=== PATIENT | female | born 1970 | race Caucasian/White ===

== ENCOUNTER 2025-02-09 15:00 | Outpatient (CLI) | payer OTHER, SELFPAY ==
[2025-02-09 19:39] LABS: Hematocrit 40.0 % (37.0-47.0); Hemoglobin 13.5 g/dL (12.2-16.2); Immature Granulocytes % 0.2 %; Mean Corpuscular HGB Conc 33.8 g/dL (31.8-35.4); Mean Corpuscular Hemoglobin 29.1 pg (27.0-31.2); Mean Corpuscular Volume 86.2 fl (81-99); Nucleated Red Blood Cells % 0 %; Platelet Count 309 K/mm3 (142-424); Red Blood Count 4.64 M/mm3 (4.20-5.40); Red Cell Distribution Width-SD 40.0 fL; White Blood Count 8.4 K/mm3 (4.8-10.8)
[2025-02-09 20:00] LABS: Hemoglobin A1C 6.2 % (4.0-6.0)
[2025-02-09 20:01] LABS: Albumin Level 4.0 g/dl (3.5-5.0); Chloride 98 mmol/L (98-107)
[2025-02-09 20:02] LABS: Potassium 3.5 mmoL/L (3.5-5.1); Sodium 138 mmol/L (136-145)
[2025-02-09 20:04] LABS: Alanine Aminotransferase 33 U/L (12-78); Alkaline Phosphatase 144 U/L (38-126); Anion Gap 13.5 mEq/L (5-15); Aspartate Amino Transferase 40 U/L (14-36); Bilirubin,Total 0.7 mg/dl (0.2-1.3); Blood Urea Nitrogen 12 mg/dl (7-17); Carbon Dioxide 30 mmol/L (22.0-30.0); Creatinine,Serum 0.70 mg/dl (0.52-1.04); Estimated Glomerular Filt Rate 88 ml/min (>60); GFR (African American) 106 ML/MIN (>60)
[2025-02-09 20:05] LABS: Albumin/Globulin Ratio 1.3 (1.1-1.8); Calcium 9.5 mg/dl (8.4-10.2); Cholesterol 307 mg/dl (140-200); Globulin 3.0 g/dL (1.3-3.2); Glucose 113 mg/dl (74-100); Total Protein,Serum 7.0 g/dl (6.3-8.2); Triglycerides 253 mg/dl (30-150)
[2025-02-09 20:35] LABS: Thyroid Stimulating Hormone 1.58 uIU/mL (0.465-4.68)
[2025-02-09 20:55] LABS: Hepatitis C Ab Qual. W/ RFX NEGATIVE (Negative)
[2025-02-09 22:10] LABS: Vitamin B12 447 pg/mL (239-931)
[2025-02-09 22:11] LABS: HDL Cholesterol 46 mg/dl (40-60)
--- OUTSIDE RECORDS SUMMARY | 2025-02-10 10:31 | XMS_ITS | Encounter Summary ---
Author Organization [place] [address] Care Team Providers Care Dot Net Developer Name Role Phone Ifrah Heard DO Primary Care Provider [phone] Reason for Visit * Reason Comments Medication Refill Encounter Details Date Type Department Care Team ([facility] Contact Info) Description 12/28/2024 Refill [facility] [address] [place] [address] Ifrah Heard DO [address] [place] [address] Medication Refill Social History Tobacco Use Types Packs/Day Years Used Date Smoking Tobacco: Never Smokeless Tobacco: Never Alcohol Use Standard Drinks/Week Comments Never 0 (1 standard drink = 0.6 oz pur e alcohol) PHQ-2 Answer Date Recorded PHQ-2 Total Score 0 04/01/2023 Sexually Active Control Partners Comments Not Currently Comments No Sex and Gender Information Value Date Recorded Sex Assigned at Not on file Legal Sex Female 12:44 AM EDT Gender Identity Not on file Sexual Orientation Not on file documented as of this encounter Functional Status * Is the person deaf or does he/she have serious difficulty hearing? Answer Date of Assessment Author No 04/01/2023 12:59 PM EDT Nikki Enrique MA * Is the person blind or does he/she have serious difficulty seeing even when wearing glasses? Answer Date of Assessment Author No 04/01/2023 12:59 PM EDT Nikki Enrique MA * Does this person have serious difficulty walking or climbing stairs? Answer Date of Assessment Author No 04/01/2023 12:59 PM EDT Nikki Enrique MA * Does this person have difficulty dressing or bathing? Answer Date of Assessment Author No 04/01/2023 12:59 PM EDT Nikki Enrique MA * Because of a physical, mental or emotional condition, does this person have difficulty doing errands alone such as visiting a doctor's office or shopping? Answer Date of Assessment Author No 04/01/2023 12:59 PM EDT Nikki Enrique MA documented as of this encounter Mental Status * Because of a physical, mental or emotional condition, does this person have serious difficulty concentrating, remembering or making decisions? Answer Entry Date Author No 04/01/2023 12:59 PM EDT Nikki Enrique MA documented in this encounter Ordered Prescriptions Prescription Sig Dispense Quantity Refills Last Filled Start Date End Date hydrOXYzine (VISTARIL) 50 mg Oral CapsuleIndications :Psychophysiologic insomnia Take 1 Capsule by mouth nightly. 30 Capsule 12/29/2024 documented in this encounter Plan of Treatment Not on file documented as of this encounter Goals Goal Patient Goal Type Associated Problems Recent Progress Patient-Stated? Author Blood Pressure < 140/90 Blood Pressure 130/78(2022 12:53 PM EDT) No Raven Patricia MD Maintain a healthy diet, exercise regularly and maintain an ideal body weight General No Beckie Meeks, RMA BMI (Calculated) < 30 General 51.3(04/01/20 12:53 PM EDT) No Raven Patricia MD HEMOGLOBIN A1C < 7.0 Result Component 8.1( 2 2:49 PM EST) No Raven Patricia MD documented as of this encounter Visit Diagnoses Diagnosis Psychophysiologic insomnia Persistent disorder of initiating or maintaining sleep documented in this encounter Discontinued Medications Medication Sig Discontinue Reason Start Date End Da te hydrOXYzine (VISTARIL) 50 mg Oral CapsuleIndications:Psych ophysiologic insomnia Take 1 Capsule by mouth nightly. 11/26/2024 12/29/2024 documented as of this encounter Care Teams Dot Net Developer Relationship Specialty Start Date End Date Ifrah Heard DO [employer] MATTHEW CHRISTIAN [id number] PCP - General Family Medicine 08/05/23 01/06/25 documented as of this encounter
--- OUTSIDE RECORDS SUMMARY | 2025-02-10 10:31 | XMS_ITS | Encounter Summary ---
Author Organization [place] Address [place] [address] [place] [address] Care Team Providers Care Propagator Laborer Name Role Phone Unavailable Primary Care Provider Unavailabl e Reason for Visit * Reason Comments Medication Refill Encounter Details Date Type Department Care Team (Late st Contact Info) Description 01/27/2025 Refill [facility] [address] [place] [id number] Ifrah Heard, DO [address] [place] [id number] Medication Refill Social History Tobacco Use Types [...] Nikki Enrique MA documented in this encounter Plan of Treatment Not on file documented as of this encounter Goals Goal Patient Goal Type Associated Problems Recent Progress Patient-Stated? Author Blood Pressure < 140/90 Blood Pressure 130/78(2022 12:53 PM EDT) No Raven Patricia MD Maintain a healthy diet, exercise regularly and maintain an ideal body weight General No Beckie Meeks, ALFREDO BMI (Calculated) < 30 General 51.3(04/01/20 12:53 PM EDT) No Raven Patricia MD HEMOGLOBIN A1C < 7.0 Result Component 8.1( 2 2:49 PM EST) No Raven Patricia MD documented as of this encounter Visit Diagnoses Diagnosis Candidal intertrigo Candidiasis of skin and nails documented in this encounter
--- OUTSIDE RECORDS SUMMARY | 2025-02-10 10:31 | XMS_ITS | Clinical Summary ---
Author Organization [facility] Address [address] [place] [id number] Phone Care Team Providers Care Funeral Home Attendant Name Role Phone Unavailable Primary Care Provider Unavailabl e Allergies Active Allergy Reactions Criticality Noted Date Comments Latex Hives High 01/05/2021 Metformin Other (See Comments) ,Shortness Of Breath High 01/05/2021 Can't walk Medications Blood-Glucose Meter,Continuous (DEXCOM G6 PROPERTY PRESERVATION SPECIALIST) [facility] 1 Device by [facility].(Non-Drug; Combo Route) route continuous. 1 Each 05/28/20 22 Active Blood-Glucose Meter [facility] KitIndications:Unc ontrolled type 2 diabetes mellitus with hyperglycemia (HCC),Type 2 diabetes mellitus with hyperglycemia, with long-term current use of insulin (HCC) Use to check sugars as needed 1 Kit 09/04/19 23 Active DEXCOM G6 SENSOR [facility] DeviceIndications: Uncontrolled type 2 diabetes mellitus with hyperglycemia (HCC) CHANGE EVERY 10 DAYS 3 Each 11 01/23/20 24 Active lancets (ONETOUCH DELICA PLUS LANCET) 33 gauge [facility] MiscIndications:Un controlled type 2 diabetes mellitus with hyperglycemia (HCC) 100 Each by MISCELLANEOUS route 4 times daily as needed. 100 Each 11 06/05/19 25 Active losartan-hydrochlo rothiazide (HYZAAR) 50-12.5 mg Oral TabletIndications: Diabetic peripheral neuropathy (HCC),Type 2 diabetes mellitus with hyperlipidemia (HCC),Hypertension , unspecified type,Obesity, diabetes, and hypertension syndrome (HCC) Take 1 Tablet by mouth daily. 100 Tablet 2 06/11/19 25 Active hydrocortisone 2.5 % Top CreamIndications:P aronychia of great toe Apply topically 2 times daily. 28.35 g 1 08/19/19 25 Active aspirin 81 mg Oral Tablet, ChewableIndication s:Diabetic peripheral neuropathy (HCC),Type 2 diabetes mellitus with hyperlipidemia (HCC),Hypertension , unspecified type Chew and Swallow 1 Tablet by mouth once daily. 30 Tablet 4 09/03/19 25 Active montelukast (SINGULAIR) 10 mg Oral TabletIndications: Seasonal allergic rhinitis, unspecified trigger Take 1 Tablet by mouth every evening. 30 Tablet 2 09/03/19 25 Active fexofenadine (KAREN) 60 mg Oral TabletIndications: Seasonal allergic rhinitis, unspecified trigger Take 1 Tablet by mouth 2 times daily. 60 Tablet 2 10/09/19 25 Active amitriptyline (ELAVIL) 100 mg Oral TabletIndications: Diabetic peripheral neuropathy (HCC) Take 1 Tablet by mouth nightly. 30 Tablet 2 10/09/19 25 Active omeprazole (PRILOSEC) 40 mg Oral Capsule, Delayed Release(E.C.)Indic ations:Chronic GERD Take 1 Capsule by mouth daily. 100 Capsule 10/09/19 25 Active atorvastatin (LIPITOR) 40 mg Oral TabletIndications: Type 2 diabetes mellitus with hyperlipidemia (HCC) Take 1 Tablet by mouth daily. 30 Tablet 2 11/03/19 25 Active insulin glargine (LANTUS) 100 unit/mL (3 mL) SubQ Insulin PenIndications:Unc ontrolled type 2 diabetes mellitus with hyperglycemia (HCC) Inject 40 Units under the skin 2 times daily for 360 days. 72 mL 3 11/03/19 25 026 Active BD FLORENCE 2ND GEN PEN NEEDLE 32 gauge x 32 Misc NeedleIndications: Type 2 diabetes mellitus with hyperglycemia, with long-term current use of insulin (HCC),Diabetic peripheral neuropathy (HCC),Type 2 diabetes mellitus with hyperlipidemia (HCC) USE 4 TIMES DAILY NEEDED. 100 Each 6 11/06/19 25 Active ketoconazole (NIZORAL) 2 % Top CreamIndications:C andidal intertrigo Apply topically daily. 30 g 2 11/06/19 25 Active OZEMPIC 1 mg/dose (4 mg/3 mL) SubQ Pen InjectorIndication s:Type 2 diabetes mellitus with hyperlipidemia (HCC) Inject 1 mg under the skin once weekly. 3 mL 11/27/19 25 Active DEXCOM G6 TRANSMITTER [facility] Device Use to check blood sugar. Change every 90 days. 1 Each 11/27/19 25 Active FLUoxetine (PROZAC) 40 mg Oral CapsuleIndications :Generalized anxiety disorder,Current moderate episode of major depressive disorder without prior episode (HCC) Take 1 Capsule by mouth daily. 90 Capsule 1 11/27/19 25 Active Blood-Glucose Meter,Continuous (DEXCOM G7 PROPERTY PRESERVATION SPECIALIST) [facility] MiscIndications:Ty pe 2 diabetes mellitus with hyperlipidemia (HCC) 1 Each by [facility].(Non-Drug; Combo Route) route continuous. Use as directed for continuous blood glucose monitoring. 1 Each 12/03/19 25 Active DEXCOM G7 SENSOR [facility] DeviceIndications: Type 2 diabetes mellitus with hyperlipidemia (HCC) 1 Each by [facility].(Non-Drug; Combo Route) route every 10 days. Follow package directions to apply sensor for continuous blood glucose monitoring. Change sensor every 10 days. 3 Each 3 12/03/19 25 Active ONETOUCH VERIO TEST STRIPS [facility] StripIndications:U ncontrolled type 2 diabetes mellitus with hyperglycemia (HCC) Use to check blood sugars as needed. 100 Strip 11 12/17/19 25 Active hydrOXYzine (ATARAX) 25 mg Oral TabletIndications: Generalized anxiety disorder Take 1 Tablet by mouth 3 times daily as needed for Anxiety. 90 Tablet 2 12/17/19 25 Active insulin aspart U-100 (NOVOLOG U-100 INSULIN ASPART) 100 unit/mL SubQ SolutionIndication s:Uncontrolled type 2 diabetes mellitus with hyperglycemia (HCC) Inject 28 Units under the skin 3 times daily (before meals). 75.6 mL 1 12/25/19 25 Active mupirocin (BACTROBAN) 2 % Top OintmentIndication s:Paronychia of great toe Apply topically 3 times daily. 22 g 12/29/19 25 Active hydrOXYzine (VISTARIL) 50 mg Oral CapsuleIndications :Psychophysiologic insomnia Take 1 Capsule by mouth nightly. 30 Capsule 12/30/19 25 Active Active Problems Patient Care Coordination No te Formatting of this note migh t be different from the original. CGM, please print data for diabetic visits Problem Noted Date Diagnosed Date Functional urinary incontinence 07/02/2024 Candidal intertrigo 02/20/2024 Overview (02/20/2024): minimizing moisture and friction in the involved area. include: ?Daily cleansing of intertriginous skin with a mild cleanser followed by drying of affected area with a business administration program chair on a cool setting ?Aeration of affected area when feasible ?Daily application of drying powders, such as powders composed of microporous cellulose ?Use of absorbent material or clothing, such as cotton or palacio wool, to separate skin in folds ?Application of barrier creams in areas that may come in contact with urine or feces ?Weight loss in persons who are overweight or obese ?Appropriate treatment of coexisting diabetes mellitus In addition to these measures, topical azole antifungal cream given the common presence of candidal infection and the additional antibacterial and anti- inflammatory effects of these drugs [place] topical corticosteroid therapy for marked pruritus given that the measures above are usually effective and the risk of skin atrophy associated with long- term topical corticosteroid use in intertriginous areas. We typically prescribe a low-potency topical corticosteroid, such as hydrocortisone 2.5%, applied twice daily for one week, once daily for one week, and every other day for one week This combination of skin care measures and topical therapy usually leads to marked improvement in both signs and symptoms of intertrigo within a few weeks. PREVENTION OF RECURRENCE cleanse intertriginous areas daily with mild soap followed by drying with a business administration program chair on a cool setting. Subsequently, a drying powder can be applied. In our experience, some patients with frequent recurrences may benefit from indefinite, once-weekly application of a topical azole antifungal medication. Assessment & Plan (02/20/2024 4:55 PM EDT): Start the above measures and follow up Transportation insecurity 11/21/2023 Overview (11/21/2023): Uses [employer] program Assessment & Plan (02/20/2024 4:42 PM EDT): Has prevented patient from being able to be seen in office as well as obtaining blood work for new A1c Assessment & Plan (11/21/2023 10:12 AM EDT): Impacts patient ability to come into office for appointments Generalized anxiety disorder 10/07/2023 Assessment & Plan (07/08/2024 4:12 PM EST): Increase Prozac to 60 mg Uncontrolled type 2 diabetes mellitus with hyper glycemia 06/01/2021 Assessment & Plan (11/02/2024 10:59 AM EDT): Needs in office evaluation for physical exam, blood work, urine lab, diabetic eye exam Can make medication adjustments after these are obtained Assessment & Plan (02/20/2024 4:47 PM EDT): Plan to obtain A1c once patient has transportation to lab Review Dexcom when patient is able to come into office Discontinue Rybelsus and replace with Ozempic Start Ozempic and titrate up on dose as glucose values tolerate monitor for hypoglycemia may need to reduce insulin Currently using 30 units twice daily. Given lower glucose readings overnight, consider adjustment of higher morning dose and lower evening dose will wait to make this adjustment until able to review the Dexcom Assessment & Plan (11/21/2023 10:13 AM EDT): Will change insulin from 60 units nightly to 30 units in the morning and 30 units at night. Can continue to adjust this to avoid hypoglycemia For now continue short acting 28 units with meals, adjust as needed to avoid hypoglycemia Increase Rybelsus dose from 7 mg to 14 mg Plan to review Dexcom in 1 week and adjust insulin as needed Plan for diabetic eye exam, diabetic foot exam, diabetic labs at follow-up next week Diabetic peripheral neuropathy 06/01/2021 Type 2 diabetes mellitus with hyperlipidemia Primary hypertension 06/01/2021 NADER on CPAP 06/01/2021 Insomnia, persistent 06/01/2021 Seasonal allergic rhinitis 06/01/2021 Assessment & Plan (07/08/2024 4:11 PM EST): Will change to Karen Chronic GERD 06/01/2021 Current moderate episode of major depressive disorder without prior episode 06/01/2021 Assessment & Plan (10/07/2023 7:23 AM EDT): Prozac 40mg Follow up in a few weeks Resolved Problems Problem Noted Date Diagnosed Date Resolved Date Irritability 06/01/2021 08/29/2023 Weight loss, unintentional 06/01/2021 0 10/07/2023 Assessment & Plan (06/01/2021 7:48 PM EST): Has been losing weight unintentional for the past 6 months or year ago. May be due to significantly uncontrolled diabetes but recommend seeing GI for screening colonoscopy, get mammogram and pap smear. Advanced care planning/counseling discussion 11/21/2023 Overview (05/31/2021): No directive. Full code. Would not want prolonged ventilator without good quality of life. Would not want a long term care pharmacist feeding tube. Would be okay with short term dialysis but not long term care pharmacist. Would NOT want hospice involved. Would be willing to have palliative care. Would want aggressive care of infections at end of life. Would want to do organ or tissue donation. Encounters Date Type Department Care Team Description 01/27/2025 Refill [facility] [place] [phone] [place], [place] [phone] Ifrah Heard, DO Medication Refill 01/18/2025 Refill [facility] [place] [address] [place] [phone] Ifrah Heard, DO Medication Refill 01/18/2025 Refill [facility] [place] [address] [place] [phone] Ifrah Heard, DO Medication Refill 01/06/2025 Refill [facility] [place] [address] [place] [phone] Ifrah Heard, DO Medication Refill 12/31/2024 Refill [facility] [place] [address] [place] [phone] Ifrah Heard, DO Medication Refill 12/28/2024 Refill [facility] [place] [address] [place] [phone] Ifrah Heard, DO Medication Refill 12/26/[address] Zhang, [place] [phone] Ifrah Heard, DO Medication Refill 12/24/2024 Orders Only [address] [place] [phone] Ifrah Heard, DO Uncontrolled type 2 diabetes mellitus with hyperglycemia (HCC) (Primary Dx) 12/15/[address] Zhang, [place] [address] Ifrah Heard, DO Medication Refill 12/07/[address] Zhang, [place] [address] Ifrah Heard, DO Medication Refill 12/02/2024 Orders Only [address] [place] [phone] Ifrah Heard, DO Type 2 diabetes mellitus with hyperlipidemia (HCC) (Primary Dx) 11/25/[address] [place] [phone] Ifrah Heard, DO Medication Refill 11/25/2024 Travel 11/25/[address] [place] [phone] Ifrah Heard, DO Medication Refill 11/24/[address] Zhang, [place] [address] Ifrah Heard, DO Medication Refill from Last 3 Months Surgical History Surgery Date Site/Laterality Comments APPENDECTOMY BLADDER SURGERY SECTION OVARY REMOVAL Family History Medical History Relation Name Comments Mental Illness Brother 1 Substance Abuse Brother 1 Early Brother 2 alcohol poisoni ng Diabetes Father Heart Disease Father High Cholesterol Father High Blood Pressure Mother High Cholesterol Mother Relation Name Status Comments Brother 1 Alive Brother 2 Father Mother Alive Social History Tobacco Use Types Packs/Day Years Used Date Smoking Tobacco: Never Smokeless Tobacco: Never Tobacco Cessation:Counseling Given: Not Answered Alcohol Use Standard Drinks/Week Comments Never 0 (1 standard drink = 0.6 oz pur e alcohol) PHQ-2 Answer Date Recorded PHQ-2 Total Score 0 04/01/2023 Sexually Active Control Partners Comments Not Currently Comments No Sex and Gender Information Value Date Recorded Sex Assigned at Not on file Legal Sex Female 12:44 AM EDT Gender Identity Not on file Sexual Orientation Not on file Obstetrics History Para Term AB IAB SAB Ectopic Multiple Livin g Live Births 1 1 1 1 1 Date Outcome GA Total Labor Labor/2nd/3rd Weight Sex Type Anes PTL Lola A1 A5 Name Clin Term M CS-LT ranv N Living Complications:None Last Filed Vital Signs Vital Sign Reading Time Taken Comments Blood Pressure 130/78 04/01/2023 12:53 PM EDT Pulse 99 04/01/2023 12:53 PM EDT Temperature 36.1 C (97 F) 04/01/2023 12:53 PM EDT Respiratory Rate 18 04/01/2023 12:53 PM EDT Oxygen Saturation 99% 04/01/2023 12:53 PM EDT Inhaled Oxygen Concentration - - Weight 118.8 kg (262 lb) 04/01/2023 12:53 PM EDT Height 152.4 cm (5') 04/01/2023 12:53 PM EDT Body Mass Index 51.17 04/01/2023 12:53 PM EDT Plan of Treatment Health Maintenance Due Date Last Done Comments Pneumococcal Vaccine 50+ (1 of 2 - PCV) 1990 Cervical Cancer Screening 1992 Pap Smear 1992 DTaP/TDaP/Td (5 - Tdap) 08/14/1995 08/12/18 96, 01/22/1984, 08/21/1983, Additional history exists HPV/Pap Cotest 2001 Hepatitis B Vaccine (2 of 3 - 19+ 3-dose series) 11/03/2007 10/06/2007 Breast Cancer Screening 2011 Cologuard 2016 Colon Cancer Screening 2016 Colonoscopy 2016 FIT 2016 Sigmoidoscopy 2016 Virtual Colonography 2016 Zoster (1 of 2) 2021 Kidney Health: uACR 06/01/2022 06/01/2021 Hemoglobin A1c 10/23/2022 04/25/2022, 06/0 08/2021, 05/31/2021, Additional history exists Kidney Health: eGFR 04/25/2023 04/25/2022, Lipids 04/25/2023 04/25/2022, 1202/2021, 08/11/2020 Diabetic Eye Exam 05/31/2023 05/31/2021 Annual Wellness Exam 04/01/2024 04/01/2023 COVID-19 Vaccine ( season) 2025 01/26/2022, 07/29/2021 Influenza Vaccine (#1) 2025 Meningococcal B Vaccine Aged Out No l onger eligible based on patient's age to complete this topic Goals Goal Patient Goal Type Associated Problems Recent Progress Patient-Stated? Author Blood Pressure < 140/90 Blood Pressure 130/78(2022 12:53 PM EDT) No Raven Patricia MD Maintain a healthy diet, exercise regularly and maintain an ideal body weight General No Beckie Meeks, ALFREDO BMI (Calculated) < 30 General 51.3(04/01/20 12:53 PM EDT) No Raven Patricia MD HEMOGLOBIN A1C < 7.0 Result Component 8.1( 2:49 PM EST) No Raven Patricia MD Procedures Procedure Name Priority Date/Time Associated Diagnosis Comments COMPREHENSIVE METABOLIC PANEL Routine 04/25/2022 2:49 PM EST Type 2 diabetes mellitus with hyperlipidemia (HCC) LIPID SCREEN Routine 04/25/2022 2:49 PM EST Type 2 diabetes mellitus with hyperlipidemia (HCC) HEMOGLOBIN A1C Routine 04/25/2022 2:49 PM EST Uncontrolled type 2 diabetes mellitus with hyperglycemia (HCC) MICROALBUMIN/CREATINI NE RATIO URINE Routine 06/01/2021 8:15 AM EST Well woman exam (no gynecological exam) Diabetes mellitus type 2, uncontrolled, with complications (HCC) Diabetic peripheral neuropathy (HCC) Type 2 diabetes mellitus with hyperlipidemia (HCC) from Last 3 Months or Most Recently Relevant to Health Maintenance Results * (ABNORMAL) HEMOGLOBIN A1C (04/25/2022 2:49 PM EST) Hgb A1C 8.1(H) 4.2 - 5.6 % 04/25/2022 7:49 PM EST [facility] [place] Est. Avg Glucose 186 mg/dL 04/25/2022 7:49 PM EST [facility] Blood VENOUS BLOOD / Unknown Venipuncture / Unknown 04/25/2022 2:49 PM EST 04/25/2022 2:49 PM EST Narrative [facility] [facility] - 04/25/2022 7:49 PM EST REFERENCE RANGE: Normal: 4.0-5.6% Pre-diabetes: 5.7-6.4% Provisional diagnosis of diabetes: >6.4% Hgb F>10% and anything which shortens red cell survival, such as hemolytic anemia, or unstable hemoglobin variants such as HbSS, HbSC, or HbCC, will lower the HbA1c value associated with a given level of glycemic control. us Raven Alfaro MD CHEMISTRY ORDERABLE S Final Result [facility] [address] [facility] , [address] [place] [id number] * (ABNORMAL) LIPID SCREEN (04/25/2022 2:49 PM EST) Cholesterol 166 <200 mg/dL 04/25/2022 9:53 PM EST [facility] Comment: < 200 Desirable 200 - 239 Borderline High >= 240 High Triglyceride 211(H) <150 mg/dL 04/25/2022 9:53 PM EST [facility] Comment: < 150 Normal 150 - 199 Borderline High 200 - 499 High >= 500 Very High HDL 40 >=40 mg/dL 04/25/2022 9:53 PM EST [facility] Comment: > 60 Optimal 40 - 60 Acceptable < 40 Low LDL Calculated 90 <100 mg/dL 04/25/2022 9:53 PM EST [facility] Comment: < 100 Optimal 100 - 129 Near or above optimal 130 - 159 Borderline High 160 - 189 High >= 190 Very High Non-HDL-C Calculated 126 <=129 mg/dL 04/25/2022 9:53 PM EST [facility] Comment: <130 Desirable 130-159 Above Desirable 160-189 Borderline High 190-219 High >= 220 Very High Fasting Specimen? No None 022 9:53 PM EST [facility] Blood VENOUS BLOOD / Unknown Venipuncture / Unknown 04/25/2022 2:49 PM EST 04/25/2022 2:49 PM EST us Raven Alfaro MD CHEMISTRY ORDERABLE S Final Result [facility] [address] [facility], [place] [address] [facility] [address] [place] [address] * (ABNORMAL) COMPREHENSIVE METABOLIC PANEL (04/25/2022 2:49 PM EST) Sodium 137 136 - 145 mmol/L 04/25/2022 9:53 PM EST [facility] Potassium 3.9 3.5 - 5.0 mmol/L 04/25/2022 9:53 PM EST [facility] Chloride 101 98 - 107 mmol/L 04/25/2022 9:53 PM EST [facility] Total CO2 27 22 - 29 mmol/L 04/25/2022 9:53 PM EST [facility] Anion Gap 9 7 - 16 mmol/L 04/25/2022 9:53 PM EST [facility] Calcium 9.9 8.6 - 10.4 mg/dL 04/25/2022 9:53 PM EST [facility] Glucose Lvl 161(H) 74 - 100 mg/dL 04/25/2022 9:53 PM EST [facility] BUN 6 6 - 20 mg/dL 04/25/2022 9:53 PM EST [facility] Creatinine 0.51 0.51 - 1.30 mg/dL 04/25/2022 9:53 PM EST [facility] Albumin 3.8 3.5 - 5.2 gm/dL 04/25/2022 9:53 PM EST [facility] Total Protein 6.9 6.4 - 8.3 gm/dL 04/25/2022 9:53 PM EST [facility] Bili Total 0.4 0.1 - 1.3 mg/dL 04/25/2022 9:53 PM EST [facility] ALT 21 <=41 U/L 04/25/2022 9:53 PM EST [facility] AST 19 <=40 U/L 04/25/2022 9:53 PM EST [facility] Alk Phos 141(H) 36 - 123 U/L 04/25/2022 9:53 PM EST [facility] eGFR (CKD-EPIcr 2020) 113 >=60 mL/min/1.7 3 m2 04/25/2022 9:53 PM EST [facility] Comment:Estimated GFR was ca lculated using the CKD-EPIcr (2020) equation refit without race. The equation is recommended by the National Kidney Foundation - [place] [employer] Neph[employer] Task Force. Blood VENOUS BLOOD / Unknown Venipuncture / Unknown 04/25/2022 2:49 PM EST 04/25/2022 2:49 PM EST us Raven Alfaro MD CHEMISTRY ORDERABLE S Final Result [facility], [place] [address] [facility] [address] [place] [address] * MICROALBUMIN/CREATININE RATIO URINE (06/01/2021 8:15 AM EST) Urine Microalb <12.0 mg/L 06/01/2021 3:38 PM EST [facility] Urine Creatinine 28.8 mg/dL 06/01/20 21 3:38 PM EST [facility] Ur Microalb/Creat 021 3:38 PM EST [facility], [facility] Comment: Because the albumin level is below the level of detection in this urine specimen, the laboratory is unable to calculate a reliable albumin/creatinine ratio. Microalbuminuria is unlikely if the urine albumin concentration is less than 20- 30 mg/L in a random specimen. Urine URINE SPECIMEN COLLECTION / Unknown 06/01/2021 8:15 AM EST 06/01/2021 8:15 AM EST us Raven Alfaro MD URINE ORDERABLES Fi nal Result [facility] [address] [place] [address] , [place] [address] from Last 3 Months or Most Recently Relevant to Health Maintenance Insurance Member Subscriber Plan / Payer (Ef fective 2024-Present) Name:Linda Tapia Relation to Subscriber:Self Name:Linda Tapia Payer ID:Not on file Group ID:[id number] Type:Not on file Address: [place] [id number] [address] [place] [facility] [employer] [place] [id number]
--- OUTSIDE RECORDS SUMMARY | 2025-02-10 10:31 | XMS_ITS | Encounter Summary ---
Author Organization [facility] [place] [address] Care Team Providers Care Mental Health Clinician Name Role Phone Unavailable Primary Care Provider Unavailabl e Reason for Visit * Reason Comments Medication Refill Encounter Details Date Type Department Care Team (Late st Contact Info) Description 01/18/2025 Refill [facility] [place] [address] [place] [phone] Ifrah Heard, DO [address] [employer] [place] [id number] Medication Refill Social History Tobacco Use Types [...]
--- OUTSIDE RECORDS SUMMARY | 2025-02-10 10:31 | XMS_ITS | Encounter Summary ---
Author Organization [place] [address] Care Team Providers Care Traffic Supervisor Name Role Phone Ifrah Heard DO Primary Care Provider [phone] Reason for Visit * Reason Comments Medication Refill Encounter Details Date Type Department Care Team ([facility] Contact Info) Description 12/15/2024 Refill [place] [address] [place] [address] Ifrah Heard DO [address] [place] [address] Medication Refill Social History Tobacco Use Types [...] Last Filled Start Date End Date hydrOXYzine (ATARAX) 25 mg Oral TabletIndications:G eneralized anxiety disorder Take 1 Tablet by mouth 3 times daily as needed for Anxiety. 90 Tablet 2 12/16/2024 ONETOUCH VERIO TEST STRIPS Mis StripIndications:Un controlled type 2 diabetes mellitus with hyperglycemia (HCC) Use to check blood sugars as needed. 100 Strip 11 12/16/2024 documented in this encounter Miscellaneous Notes * Telephone Encounter - Najma Crowell CPhT - 12/16/2024 12:55 PM EDT ONETOUCH There is no CRS protocol for this medication. hydrOXYzine There is no CRS protocol for this medication. FLUoxetine Refill requested too soon. Refill denied. Last sent on 11/26/24 for a 90 day supply with 1 refills. Pt notified via [employer] ([employer]) if active. documented in this encounter Plan of Treatment Not on file documented as of this encounter Goals Goal Patient Goal Type Associated Problems Recent Progress Patient-Stated? Author Blood Pressure < 140/90 Blood Pressure 130/78(2022 12:53 PM EDT) No Raven Patricia MD Maintain a healthy diet, exercise regularly and maintain an ideal body weight General No Denis Meeksey Brittnee, RMA BMI (Calculated) < 30 General 51.3(04/01/20 12:53 PM EDT) No Raven Patricia MD HEMOGLOBIN A1C < 7.0 Result Component 8.1( 2 2:49 PM EST) No Raven Patricia MD documented as of this encounter Visit Diagnoses Diagnosis Uncontrolled type 2 diabetes mellitus with hyperglycemia (HCC) Generalized anxiety disorder Current moderate episode of major depressive disorder without prior episode (HCC) documented in this encounter Discontinued Medications Medication Sig Discontinue Reason Start Date End Da te hydrOXYzine (ATARAX) 25 mg Oral TabletIndications:Gene ralized anxiety disorder Take 1 Tablet by mouth 3 times daily as needed for Anxiety. 06/05/2024 12/16/2024 Blood Sugar Diagnostic (ONETOUCH VERIO TEST STRIPS) Misc StripIndications:Uncon trolled type 2 diabetes mellitus with hyperglycemia (HCC) 100 Strips by MISCELLANEOUS route 4 times daily as needed. 06/05/2024 12/16/2024 documented as of this encounter Care Teams Traffic Supervisor Relationship Specialty Start Date End Date [place] [address] PCP - General Family Medicine 08/05/23 01/06/25 documented as of this encounter
--- OUTSIDE RECORDS SUMMARY | 2025-02-10 10:31 | XMS_ITS | Encounter Summary ---
Author Organization [place] [address] Care Team Providers Care Water Hydrant Installer Name Role Phone Ifrah Heard DO Primary Care Provider [phone] Encounter Details Date Type Department Care Team (Late st Contact Info) Description 12/24/2024 Orders Only SEP [place] [address] [place] [address] Ifrah Heard DO [address] [place] [phone] Uncontrolled type 2 diabetes mellitus with hyperglycemia (HCC) (Primary Dx) Social History Tobacco Use Types Packs/Day Years [...] Refills Last Filled Start Date End Date insulin aspart U-100 (NOVOLOG U-100 INSULIN ASPART) 100 unit/mL SubQ SolutionIndications :Uncontrolled type 2 diabetes mellitus with hyperglycemia (HCC) Inject 28 Units under the skin 3 times daily (before meals). 75.6 mL 1 12/24/2024 documented in this encounter Plan of Treatment Not on file documented as of this encounter Goals Goal Patient Goal Type Associated Problems Recent Progress Patient-Stated? Author Blood Pressure < 140/90 Blood Pressure 130/78(2022 12:53 PM EDT) No Raven Patricia MD Maintain a healthy diet, exercise regularly and maintain an ideal body weight General No Beckie Meeks, [place] BMI (Calculated) < 30 General 51.3(04/01/20 12:53 PM EDT) No Raven Patricia MD HEMOGLOBIN A1C < 7.0 Result Component 8.1( 2 2:49 PM EST) No Raven Patricia MD documented as of this encounter Visit Diagnoses Diagnosis Uncontrolled type 2 diabetes mellitus with hyperglycemia (HCC)- Primary documented in this encounter Discontinued Medications Medication Sig Discontinue Reason Start Date End Da te NOVOLOG FLEXPEN U-100 INSULIN 100 unit/mL (3 mL) SubQ Insulin PenIndications:Uncontrol led type 2 diabetes mellitus with hyperglycemia (HCC) Inject 28 units under the skin 3 times daily before meals. Not Covered by Insurance 12/08/2024 12/24/2024 documented as of this encounter Care Teams Water Hydrant Installer Relationship Specialty Start Date End Date Ifrah Haerd DO [address] [employer] [place] [address] PCP - General Family Medicine 08/05/23 01/06/25 documented as of this encounter
--- OUTSIDE RECORDS SUMMARY | 2025-02-10 10:31 | XMS_ITS | Encounter Summary ---
Author Organization [place] [address] Care Team Providers Care Mis Director Name Role Phone Unavailable Primary Care Provider Unavailabl e Reason for Visit * Reason Comments Medication Refill Encounter Details Date Type Department Care Team (Late st Contact Info) Description 01/18/2025 Refill SEP [place] [address] [place] [id number] Ifrah Heard, DO [address] [place] [phone] Medication Refill Social History Tobacco Use Types [...] as of this encounter Visit Diagnoses Diagnosis Diabetic peripheral neuropathy (HCC) Type II or unspecified type diabetes mellitus with neurological manifestations, not stated as uncontrolled documented in this encounter
--- OUTSIDE RECORDS SUMMARY | 2025-02-10 10:31 | XMS_ITS | Encounter Summary ---
Author Organization [place] [address] Care Team Providers Care Medical Historian Name Role Phone Ifrah Heard DO Primary Care Provider [phone] Reason for Visit * Reason Comments Medication Refill Encounter Details Date Type Department Care Team ([facility] Contact Info) Description 01/06/2025 Refill [place] [address] [place] [address] Ifrah Heard DO [address] [place] [address] Medication Refill Social History Tobacco Use Types [...] an ideal body weight General No Beckie Meeks RMA BMI (Calculated) < 30 General 51.3(04/01/20 12:53 PM EDT) No Raven Patricia MD HEMOGLOBIN A1C < 7.0 Result Component 8.1( 2 2:49 PM EST) No Raven Patricia MD documented as of this encounter Visit Diagnoses Diagnosis Seasonal allergic rhinitis, unspecified trigger documented in this encounter Care Teams Medical Historian Relationship Specialty Start Date End Date Ifrah Heard DO [address] [employer] [place] [address] PCP - General Family Medicine 08/05/23 01/06/25 documented as of this encounter
--- OUTSIDE RECORDS SUMMARY | 2025-02-10 10:31 | XMS_ITS | Encounter Summary ---
Author Organization [place] [address] Care Team Providers Care Daytime Babysitter Name Role Phone Ifrah Heard DO Primary Care Provider [phone] Reason for Visit * Reason Comments Medication Refill Encounter Details Date Type Department Care Team ([facility] Contact Info) Description 12/31/2024 Refill [place] [address] [place] [address] Ifrah Heard DO [address] [place] [address] Medication Refill Social History Tobacco Use Types [...] trigger documented in this encounter Care Teams Daytime Babysitter Relationship Specialty Start Date End Date Ifrah Heard DO [address] [employer] [place] [address] PCP - General Family Medicine 08/05/23 01/06/25 documented as of this encounter
--- OUTSIDE RECORDS SUMMARY | 2025-02-10 10:31 | XMS_ITS | Encounter Summary ---
Author Organization [place] [address] Care Team Providers Care Pattern Changer Name Role Phone Ifrah Heard DO Primary Care Provider [phone] Reason for Visit * Reason Onset Date Comments Medication Refill 12/26/2024 Encounter Details Date Type Department Care Team (Late st Contact Info) Description 12/26/2024 Refill [place] [address] [place] [address] Ifrah Heard DO [address] [place] [address] Medication Refill Social History Tobacco Use Types [...] Refills Last Filled Start Date End Date mupirocin (BACTROBAN) 2 % Top OintmentIndication s:Paronychia of great toe Apply topically 3 times daily. 22 g 12/28/2024 documented in this encounter Plan of Treatment [...] as of this encounter Visit Diagnoses Diagnosis Paronychia of great toe documented in this encounter Discontinued Medications Medication Sig Discontinue Reason Start Date End Da te mupirocin (BACTROBAN) 2 % Top OintmentIndications:Par onychia of great toe Apply topically 3 times daily. Reorder 11/25/2024 12/26/2024 documented as of this encounter Care Teams Pattern Changer Relationship Specialty Start Date End Date Ifrah Heard DO [address] [place] [address] PCP - General Family Medicine 08/05/23 01/06/25 documented as of this encounter
[2025-02-11 09:22] LABS: Hepatitis B Surface Antigen Negative (Negative)
== END 2025-02-09 23:59 | disposition home or self-care (01) ==
LOC: LAB.DROPOF 02-10 10:19
PROVIDERS: PCP Nurse Practitioner; Visit Provider Nurse Practitioner
DX: Z11.59 Encounter for screening for other viral diseases (principal); I10 Essential (primary) hypertension; E78.5 Hyperlipidemia, unspecified; E66.9 Obesity, unspecified; G47.33 Obstructive sleep apnea (adult) (pediatric); E11.40 Type 2 diabetes mellitus with diabetic neuropathy, unspecified; F31.9 Bipolar disorder, unspecified; F41.9 Anxiety disorder, unspecified; J30.9 Allergic rhinitis, unspecified
CPT/HCPCS: 80053; 80061; 82607; 83036; 84443; 85025; 86803; 87340; 87389

== ENCOUNTER → 2025-03-22 08:12 | Outpatient (CLI) | payer OTHER, SELFPAY | LOC: SL 03-26 08:13 | PROVIDERS: PCP Nurse Practitioner; Visit Provider Nurse Practitioner | DX: G47.33 Obstructive sleep apnea (adult) (pediatric) (principal) | CPT/HCPCS: G0399 ==